=== PATIENT | female | born 1980 | race Caucasian/White ===

== ENCOUNTER → 2022-06-24 | Outpatient (CLI) | payer OTHER ==
[~2022-06-24] MED LIST: ALBU90OI INH; Benadryl 50 mg50 MG PO; EPIN.3I IM; FAMO20 PO; HYDCHL12.5 PO; OLOP.1OPSO OD; Omeprazole20 M1 PO; PRED10 PO; Pepcid20 MG PO; Prednisone20 MG PO
== END | disposition home or self-care (01) ==
LOC: LAB SHORT 17:38
DX: N39.0 Urinary tract infection, site not specified (principal)
CPT/HCPCS: 87077; 87086; 87186

== ENCOUNTER → 2024-05-29 | Outpatient (CLI) | payer OTHER | LOC: LAB 12:33 → LAB SHORT 12:33 | DX: N30.01 Acute cystitis with hematuria (principal) | CPT/HCPCS: 87077; 87086; 87186 ==

== ENCOUNTER → 2025-02-23 | Outpatient (CLI) | payer OTHER | LOC: LAB 15:46 → LAB SHORT 15:46 | DX: N39.0 Urinary tract infection, site not specified (principal) | CPT/HCPCS: 87077; 87086; 87186 ==